=== PATIENT | female | born 2000 | race Caucasian/White ===

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

== ENCOUNTER 2021-03-27 22:26 | Emergency (ER) | payer MEDICAID, SELFPAY ==
[2021-03-27 22:27] VITALS: BP 116/74; PULSE 86; RESP 15; TEMP 36; O2SAT 97; BMI 33.2
--- NOTE | 2021-03-27 22:43 | EX.ED.VIS.UR ---
HPI HPI - URI History of Present Illness Chief Complaint: Sore Throat Informant: patient Onset/Context/Timing Onset: Weeks (3) Context: Gradual Onset Timing: Intermittent Quality: sore/odynophagia Location: throat Current Severity: Moderate Maximum Severity: Moderate Worsened by: Swallowing Associated Symptoms Associated Symptoms: Positive for Nonproductive cough Narrative Narrative: Patient brought in with her mother for 3 weeks of intermittent symptoms. Hurts to swallow, she feels like she has some phlegm in her throat sometimes and 1 week ago she coughed up something white and hard. She has been coughing. No fevers or chills. No myalgias, loss of taste or smell, headaches, diarrhea. No abdominal symptoms. She occasionally feels like it is hard to take a deep breath but she denies any carmencita dyspnea. Pain radiates to her right ear, she denies any changes in her hearing. States she has got some wisdom teeth coming in there, they have been painful and she has not had them addressed yet. Has not been vaccinated against Covid. No known Covid contacts that she knows of. ROS ROS ED Constitutional Constitutional ED: Denies chills or fever(s) Eyes Eyes: Denies change in vision or diplopia ENT ENT ED: Reports as per HPI, dental pain, nasal congestion and sore throat; Denies rhinorrhea Cardiovascular Cardiovascular: Denies chest pain or palpitations Respiratory/Chest Respiratory/Chest: Reports cough; Denies dyspnea Gastrointestinal Gastrointestinal: Denies abdominal pain, diarrhea, nausea or vomiting Genitourinary Genitourinary ED: Denies dysuria or hematuria Musculoskeletal Musculoskeletal: Denies back pain or neck pain Integumentary Denies abscess or rash Neurologic Neurologic: Denies headache(s), paresthesias or weakness Psychiatric Psychiatric: Denies anxiety or suicidal thoughts PFSH PFS Medical History no medical history no medical history Home Medications oseltamivir 75 mg PO BID #9 cap 06/26/18 [Rx Last Taken Unknown] Allergy/AdvReac Type Severity Reaction Status Date / Time No Known Allergies Allergy Verified 03/27/21 22:29 Family History no significant family his Surgical History no surgical history Social History Smoking Status: Never smoker EXAM Physical Exam Const Vital Signs: 03/27/21 22:27 03/28/21 00:17 Temperature 96.8 F L Temperature Source Temporal Pulse Rate 86 Respiratory Rate 15 Respiratory Pattern Normal Blood Pressure 116/74 Blood Pressure Mean 88 Pulse Ox 97 Oxygen Delivery Method Room Air Positive well nourished and well developed General Appearance ED: well developed and NAD HEENT Reports TM's clear and moist mucous membranes HEENT Narrative: Unerupted third molars right maxillary mandibular nontender without signs of gingivitis or infection/abscess. No trismus. Mild erythema tonsillar pillars but no tonsillar abnormalities or edema or asymmetry. No exudates. normocephalic and atraumatic Tympanic Membrane ED: Yes TM's clear and TM's normal bilaterally Eyes PERRL and EOMs intact bilaterally Neck full ROM, No nuchal rigidity, no lymphadenopathy, supple and no meningeal signs Resp normal respiratory effort and clear to auscultation bilaterally Cardio regular rate, regular rhythm and no murmurs Rate: Negative for tachycardic GI non-tender and non-distended Auscultation: normoactive bowel sounds Palpation: soft Back/Spine no CVA tenderness General Back: other FROM Extremity normal to inspection General Extremety ED: Negative for edema, pulses abnormal or tenderness General Extremity: Negative for edema or pulses abnormal Neuro oriented x3, CN's II-XII intact bilaterally and no sensory deficits noted Sensorium / Orientation: awake and alert Motor Exam: strength 5/5 throughout Skin no rashes or lesions noted and no wounds MDM MDM MDM Narrative Medical decision making narrative: I obtain a rapid strep and a Covid rapid antigen test, they both returned negative but prior to reviewing the test results or reevaluating the patient/discussing plans, she and her mother eloped. Lab Data Attestation: I reviewed the patient's lab results. Discharge Plan Triage Chief Complaint: Sore Throat ED Provider: Truman Ariza Dx/Rx/DC Orders Clinical Impression: Viral URI with cough Prescriptions: No Action oseltamivir 75 MG capsule 75 mg PO BID Qty: 9 RF: 0 Primary Care Provider: Chan Villegas Referrals: Chan Villegas MD [Primary Care Provider] - Disposition Disposition: Elopement Discharge Date/Time: 03/28/21 00:21
== END 2021-03-28 00:21 | disposition left against medical advice (07) ==
LOC: ED 22:47
PROVIDERS: Emergency Provider Emergency Medicine; PCP Pediatrics
DX: J06.9 Acute upper respiratory infection, unspecified (principal)
CPT/HCPCS: 87426; 87880; 99282

== ENCOUNTER 2023-09-21 02:07 | Emergency (ER) | payer SELFPAY ==
[2023-09-21 02:07] VITALS: BP 97/61; PULSE 90; RESP 18; TEMP 36.1; O2SAT 100
[2023-09-21 02:08] VITALS: BP 97/61; PULSE 90; RESP 18; TEMP 36.1; O2SAT 100; BMI 28.3
--- NOTE | 2023-09-21 02:22 | CT_ITS ---
STUDY: CT ABDOMEN AND PELVIS WITH CONTRAST REASON FOR EXAM: Female, 23 years old. abd pain RADIATION DOSAGE (If Supplied By Facility): CTDIvol = ( 14.42 ) mGy, DLP = ( 611.35 ) mGycm TECHNIQUE: IV 100mL Isovue-370 was administered. Transaxial images were obtained from the dome of the diaphragm to the symphysis pubis in the portal venous phase. Multiplanar coronal and sagittal images were reformatted. Individualized Dose Optimization Techniques Were Used For This CT. COMPARISON: No relevant prior comparison study available FINDINGS: LOWER CHEST: Lung bases are clear. No cardiomegaly or pericardial effusion. LIVER: The liver is normal in size, shape, and attenuation. No focal mass. GALLBLADDER AND BILIARY TREE: The gallbladder is normally distended. No gallstones. No gallbladder wall thickening or edema. No pericholecystic fluid. No intra- or extrahepatic biliary ductal dilation. PANCREAS: No focal cystic or solid mass. SPLEEN: Normal size without focal cystic or solid mass. ADRENAL GLANDS: No nodules. KIDNEYS AND URETERS: Normal renal size and position. No hydronephrosis or nephrolithiasis. PERITONEUM: No ascites or free air. No other fluid collection. BOWEL: The stomach is unremarkable. Normal caliber small bowel. There is no obstruction. No colonic wall thickening or inflammation. No free air or free fluid. No evidence of acute appendicitis. LYMPH NODES: No enlarged mesenteric or retroperitoneal lymph nodes. VESSELS: Aorta is non-dilated. URINARY BLADDER: Unremarkable. REPRODUCTIVE ORGANS: No pelvic masses. ABDOMINAL WALL: No discrete abdominal or pelvic wall hernia. BONES: No lytic or blastic abnormality. CT/Abdomen/Pelvis W IV Cont ONLY IMPRESSION: No acute findings to explain the patient''s symptomatology. Unremarkable exam Electronically Signed: Silvino Keenan MD at 4:46 EDT Reading Location ID and State: [id number] / [place] Tel , Service support ,
[2023-09-21] MEDS: Ketorolac 30 MG/ML Syringe IV (02:36)
[2023-09-21] MEDS: 0.9% Normal Saline (1000mL) 1,000 ML 999 ML IV (02:36)
[2023-09-21] MEDS: Ondansetron 4 MG/2 ML Vial IV (02:36)
[2023-09-21 02:40] LABS: Absolute Lymphocyte Count 0.35 X10^3/uL (0.83-4.51); Absolute Neutrophil Count 7.1 X10^3/uL (2.0-7.7); Basophil# 0.02 X10^3/uL; Basophil% 0.2 % (0-1); Eosinophil# 0.04 X10^3/uL; Eosinophils% 0.5 % (0-5); Hematocrit 40.7 % (37-47); Hemoglobin 14.3 g/dL (12.0-15.0); Lymphocyte # 0.35 X10^3/ul (0.83-4.51); Lymphocyte % 4.3 % (19-41); Mean Corp Hgb Conc 35.1 g/dL (32-36); Mean Corpuscular Hgb 29.2 pg (27.0-32.0); Mean Corpuscular Volume 83.1 fL (81-99); Mean Platelet Vol. 10.3 fl (6.2-12.0); Monocyte# 0.65 X10^3/uL; NRBC Flagged by Analyzer 0 % (0-5); Neutrophil # 7.05 X10^3/uL (2.7-7.7); Neutrophil % 86.6 % (47-70); POSITIVE DIFFERENTIAL YES; Platelet Count 310 K/mm3 (150-450); RBC Distribution Width CV 12.4 % (11.6-14.6); RBC Distribution Width SD 37.6 fl (35.1-43.9); White Blood Count 8.1 K/mm3 (4.4-11.0)
[2023-09-21 02:41] LABS: Bacteria 0 SEEN /hpf (None Seen); Mucous, Urine 0 SEEN /hpf (<or=2+); Red Blood Cells-Urine 0 SEEN /hpf (0-5); Squamous Epithelial Cells - UA 0 SEEN /hpf (5-10); White Blood Cells 0 SEEN /hpf (0-5)
[2023-09-21 02:53] LABS: Glucose, Dipstick Normal (Normal); Ketone-Dipstick 15 mg/dl (Negative); Leukocyte Esterase-Dipstick Negative /ul (Negative); Nitrite-Dipstick Negative (Negative); Occult Blood-Urine 10 /ul (Negative); Protein-Dipstick Negative (Negative); Specific Gravity, Urine 1.015 (1.002-1.030); Urine Bilirubin Dipstick Negative (Negative); Urine Urobilinogen Normal (Normal)
[2023-09-21 02:57] LABS: Internal QC Validated? YES +Cl - CLEAR BKGD; Pregnancy, Urine Negative Negative; Record Kit Lot#,Urine Preg 718089
[2023-09-21 03:07] LABS: AST(SGOT) 10 U/L (15-37); Alanine Aminotransfer ALT/SGPT 22 U/L (13-56); Albumin, Serum 3.3 g/dL (3.2-5.0); Alkaline Phosphatase 52 U/L (45-117); Anion Gap 6 (5-15); BUN 14 mg/dL (7-18); BUN/Creat Ratio 15.3 RATIO (10-20); Bilirubin, Direct 0.24 mg/dL (0.00-0.30); Calcium,Total 8.6 mg/dL (8.5-10.1); Chloride 106 mmol/L (98-107); Creatinine, Serum 0.91 mg/dL (0.55-1.02); EST Glomerular Filtration Rate 82 mL/min (>60); Est Glom Filt Rate - Afr Amer 99 mL/min (>60); Estimated Creatinine Clearance 82.14 ml/min; Globulin 3.4 g/dL (2.2-4.2); Glucose 102 mg/dL (74-106); Lipase 20 U/L (13-75); Potassium 3.7 mmol/L (3.5-5.1); Protein, Total 6.7 g/dL (6.4-8.2); Sodium Level 137 mmol/L (136-145)
[2023-09-21 03:08] LABS: Color, Urine Yellow (Yellow); Urine Clarity Clear (Clear)
[2023-09-21 03:09] LABS: Lactic Acid 1.6 mmol/L (0.4-1.9)
[2023-09-21 04:07] VITALS: BP 114/72; PULSE 71; RESP 17; O2SAT 98
[2023-09-21] MEDS: Morphine 4 MG/ML Syringe IV (04:27)
--- NOTE | 2023-09-21 05:06 | EDS_ITS ---
HPI History of Present Illness Chief Complaint: Flank Pain Informant: patient and family Narrative Narrative: Patient is a 23-year-old female who reports a remote history of kidney stone. She states that earlier in the week she was out in the yard and came in contact with plants and now has poison madan. She states in the last day or so she developed pain more so in the right flank/lower abdomen region. She denies any trauma or excessive activity. She denies any dysuria or concern for or STD. She states she is having her second menstrual cycle for the month which is abnormal for her. She states that secondary to the pain which will not resolve on its own at home she was concern for potential kidney stone or infectious process and therefore comes in for evaluation [facility] Home Medications desonide 0.05 % topical cream 1 applic topical TID PRN skin irritation #60 grams 09/21/23 [Rx Last Taken Unknown] ketorolac 10 mg tablet 10 mg PO 4X/DAY PRN pain 5 days #20 tabs 09/21/23 [Rx Last Taken Unknown] oxycodone-acetaminophen 5 mg-325 mg tablet (Percocet) 1 tab PO Q6H PRN pain 3 days #12 tabs 09/21/23 [Rx Last Taken Unknown] Allergy/AdvReac Type Severity Reaction Status Date / Time No Known Allergies Allergy Verified 09/21/23 02:07 Social History Smoking Status: Never smoker ROS ROS ED Constitutional Constitutional ED: Denies chills or fever(s) ENT ENT ED: Denies sore throat Cardiovascular Cardiovascular: Denies chest pain Respiratory/Chest Respiratory/Chest: Denies cough or dyspnea Gastrointestinal Gastrointestinal: Reports abdominal pain, nausea and vomiting; Denies diarrhea Genitourinary Genitourinary ED: Reports hematuria; Denies dysuria or urinary frequency Musculoskeletal Musculoskeletal: Reports back pain; Denies myalgias Integumentary Reports rash Neurologic Neurologic: Denies headache(s) Hematologic/Lymphatic Hematologic/Lymphatic: Denies easy bleeding or easy bruising EXAM Physical Exam Const Vital Signs: 09/21/23 02:08 09/21/23 02:07 09/21/23 04:07 Temperature 97.0 F L 97.0 F L Temperature Source Temporal Temporal Pulse Rate 90 90 71 Respiratory Rate 18 18 17 Blood Pressure 97/61 97/61 114/72 Blood Pressure Mean 73 73 86 Pulse Ox 100 100 98 Oxygen Delivery Method Room Air Room Air Positive well nourished and well developed General Appearance ED: well developed; Negative for pallor HEENT Reports moist mucous membranes HEENT Narrative: No signs of infection noted in the posterior pharynx No airway edema or compromise Eyes PERRL and EOMs intact bilaterally General Eye ED: Negative for scleral icterus Neck supple Neck Narrative: No nuchal rigidity or meningeal signs Resp normal respiratory effort and clear to auscultation bilaterally Cardio regular rate and regular rhythm Rate: other Other Details: Heart is regular rate and rhythm without murmurs rubs or gallops GI non-distended and no masses GI Narrative: Abdomen is soft and nondistended with normal active bowel sounds. There is pain with palpation in the midepigastric and right lower quadrant region. However there is no voluntary guarding or rigidity or pulsatile mass. 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 Auscultation: normoactive bowel sounds Palpation: soft Back/Spine Back/Spine Narrative: Faint right CVA pain noted Extremity normal to inspection Extremity Narrative: No asymmetric edema no pitting edema negative Homans' sign bilaterally Neuro oriented x3, CN's II-XII intact bilaterally and no sensory deficits noted Sensorium / Orientation: alert Motor Exam: strength 5/5 throughout Psych mental status grossly normal Skin no wounds and skin turgor normal Skin Narrative: Patient has a erythematous blanchable vesicular rash along her right forearm right cheek and abdomen and back without involvement of the palms or soles most consistent with contact dermatitis General Skin Exam: Negative for jaundice or pallor MDM MDM MDM Narrative Medical decision making narrative: Patient arrived to the ER with stable vitals. She denies any recent trauma or excessive activity but had pain greatest in the right lower quadrant. Differential diagnosis is for acute appendicitis versus kidney stone versus ovarian cyst/ovarian pathology versus UTI versus pelvic inflammatory disease versus pyelonephritis. Basic blood work was obtained which revealed no clinically significant findings and patient is urine showed trace amount of blood but otherwise no signs of infection. CT scan revealed no acute abdominal pathology such as kidney stone signs of appendicitis intestinal abscess or ovarian cyst. I discussed with patient potential of performing a ultrasound study in a few hours based on the right lower quadrant pain with negative labs and CT scan. However if the patient did have a cyst it should have been noted on CT scan and has no cyst was found concern that there is a spontaneous torsion is low. Patient does states she is feeling better after receiving her medication and therefore does not want further testing performed. Therefore she will be discharged with symptomatic care and can follow-up with her family doctor on an outpatient basis for repeat evaluation History & Record Review Discussion w/independent historian: Patient and Family Lab Data Attestation: I reviewed the patient's lab results. Labs: Laboratory Results - last 24 hr 09/21/23 09/21/23 02:26 02:32 WBC 8.1 RBC 4.90 Hgb 14.3 Hct 40.7 MCV 83.1 MCH 29.2 MCHC 35.1 RDW Std Deviation 37.6 RDW Coeff of Rosanna 12.4 Plt Count 310 MPV 10.3 Immature Gran % (Auto) 0.400 Neut % (Auto) 86.6 H Lymph % (Auto) 4.3 L Burleigh % (Auto) 8.0 Eos % (Auto) 0.5 Baso % (Auto) 0.2 Absolute Neuts (auto) 7.1 Absolute Lymphs (auto) 0.35 L Nucleated RBC % 0 Sodium 137 Potassium 3.7 Chloride 106 Carbon Dioxide 25.0 Anion Gap 6 BUN 14 Creatinine 0.91 Estim Creat Clear Calc 82.14 Est GFR (MDRD) Af Amer 99 Est GFR (MDRD) Non-Af 82 BUN/Creatinine Ratio 15.3 Glucose 102 Lactic Acid 1.6 Calcium 8.6 Total Bilirubin 0.80 Direct Bilirubin 0.24 AST 10 L ALT 22 Alkaline Phosphatase 52 Total Protein 6.7 Albumin 3.3 Globulin 3.4 Lipase 20 Urine Color Yellow Urine Clarity Clear Urine pH 5.0 Ur Specific [place] 1.015 Urine Protein Negative Urine Glucose (UA) Normal Urine Ketones 15 H Urine Occult Blood 10 H Urine Nitrite Negative Urine Bilirubin Negative Urine Urobilinogen Normal Ur Leukocyte Esterase Negative Urine RBC 0 SEEN Urine WBC 0 SEEN Ur Squamous Epith Cells 0 SEEN Urine Bacteria 0 SEEN Urine Mucus 0 SEEN Urine Test Negative Radiography Diagnostic Testing: Clinical Impression(s) from Imaging Studies Abdomen/Pelvis CT 09/21/23 02:22 IMPRESSION: No acute findings to explain the patient''s symptomatology. Unremarkable exam Electronically Signed: Silvino Keenan MD at 4:46 EDT , Discharge Plan Triage Chief Complaint: Flank Pain ED Provider: Anthony Chong Dx/Rx/DC Orders Clinical Impression: Nonspecific abdominal pain, DUB (dysfunctional uterine bleeding), Contact dermatitis Instructions: Abdominal Pain Prescriptions: New ketorolac 10 mg tablet 10 mg PO 4X/DAY PRN (Reason: pain) 5 Days Qty: 20 0RF oxycodone-acetaminophen [Percocet] 5-325 mg tablet 1 tab PO Q6H PRN (Reason: pain) 3 Days Qty: 12 0RF desonide 0.05 % cream 1 applic topical TID PRN (Reason: skin irritation) Qty: 60 0RF Stand Alone Forms: ED Work / School Excuse Primary Care Provider: Pillo Bahena Referrals: Pillo Bahena MD [Primary Care Provider] - Activity Restrictions/Additional Instructions: If you have any further concerns or worsening of symptoms please return to the ER for repeat evaluation. Otherwise follow-up with your family doctor and/or CABLE TELEVISION LINE TECHNICIAN to discuss further testing such as pelvic ultrasound to further assess for the cause of your symptoms Disposition Disposition: Home, Self Care Discharge Date/Time: 09/21/23 05:22
[2023-09-21] MEDS: MethylPREDNISolone 125 MG/2 ML Vial IV (05:17)
[2023-09-21 05:21] VITALS: BP 98/58; PULSE 72; RESP 16; TEMP 36.6; O2SAT 99
== END 2023-09-21 05:22 | disposition home or self-care (01) ==
PROVIDERS: Emergency Provider Emergency Medicine; PCP Family Medicine; Visit Provider Emergency Medicine
DX: N93.8 Other specified abnormal uterine and vaginal bleeding (principal); L25.9 Unspecified contact dermatitis, unspecified cause; R10.9 Unspecified abdominal pain; Z87.442 Personal history of urinary calculi; R31.9 Hematuria, unspecified
CPT/HCPCS: 74177; 80048; 80076; 81001; 81025; 83605; 83690; 85025; 96361; 96374; 96375; 99284; J7030; Q9967; A4216; J2405

== ENCOUNTER 2024-09-25 01:02 | Emergency (ER) | payer MEDICAID, SELFPAY ==
[2024-09-25 01:02] VITALS: BP 103/73; PULSE 68; RESP 16; TEMP 36.6; O2SAT 98; BMI 31.1
--- NOTE | 2024-09-25 01:33 | CT_ITS ---
PROCEDURE: ABDOMEN/PELVIS W IV CONT ONLY 09/25/2024 REASON FOR EXAM: ABD PAIN TECHNIQUE: Abdomen and pelvis CT with intravenous contrast. Coronal and Sagittal reconstruction series were provided. PATIENT PREPARATION: Per protocol ORAL CONTRAST TYPE: None. CONTRAST: 96 cc Isovue 370 IV One or more dose reduction techniques were used (e.g., Automated exposure control, adjustment of the mA and/or kV according to patient size, use of iterative reconstruction technique. RADIATION DOSE SUMMARY: CTDlvol: 15.88 mGy DLP: 807.89 mGycm COMPARISON: 09/21/2023 FINDINGS: The lung bases are clear. The liver, gallbladder, adrenal glands, pancreas and spleen appear within limits. Small nonobstructing right and left intrarenal stone again seen. Symmetric nephrograms without hydronephrosis or perinephric stranding. Abdominal aorta appears within limits. No adenopathy identified. No bowel dilation or free air. Normal caliber appendix without secondary signs. The left ovary, uterus and bladder appear within limits. Crenated, involuting 1.7 cm right ovarian corpus luteum cyst. Very small pelvic free fluid. The visualized osseous structures appear within limits. CT/Abdomen/Pelvis W IV Cont ONLY IMPRESSION: No evidence of acute intra-abdominal process. Crenated, involuting 1.7 cm right ovarian corpus luteum cyst. Very small pelvic free fluid. Reading Location: [id number]
[2024-09-25] MEDS: 0.9% Normal Saline (1000mL) 1,000 ML 999 ML IV (01:47)
[2024-09-25 01:52] VITALS: BP 100/62
[2024-09-25 01:52] LABS: Bacteria 0 SEEN /hpf (None Seen); Mucous, Urine 0 SEEN /hpf (<or=2+); Red Blood Cells-Urine 0 SEEN /hpf (0-5); Squamous Epithelial Cells - UA 0 SEEN /hpf (5-10); White Blood Cells 0 SEEN /hpf (0-5)
[2024-09-25 01:54] LABS: Absolute Lymphocyte Count 2.92 X10^3/uL (0.83-4.51); Absolute Neutrophil Count 4.9 X10^3/uL (2.0-7.7); Basophil# 0.04 X10^3/uL; Basophil% 0.4 % (0-1); Eosinophil# 0.24 X10^3/uL; Eosinophils% 2.7 % (0-5); Hematocrit 38.5 % (37-47); Hemoglobin 13.4 g/dL (12.0-15.0); Lymphocyte # 2.92 X10^3/ul (0.83-4.51); Lymphocyte % 32.7 % (19-41); Mean Corp Hgb Conc 34.8 g/dL (32-36); Mean Corpuscular Hgb 29.2 pg (27.0-32.0); Mean Corpuscular Volume 83.9 fL (81-99); Mean Platelet Vol. 10.2 fl (6.2-12.0); Monocyte# 0.75 X10^3/uL; Monocyte% 8.4 % (0-10); NRBC Flagged by Analyzer 0 % (0-5); Neutrophil # 4.94 X10^3/uL (2.7-7.7); Neutrophil % 55.5 % (47-70); Platelet Count 341 K/mm3 (150-450); RBC Distribution Width SD 36.3 fl (35.1-43.9); Red Blood Count 4.59 M/mm3 (4.2-5.4); White Blood Count 8.9 K/mm3 (4.4-11.0)
[2024-09-25 01:54] LABS: Color, Urine Yellow (Yellow); Glucose, Dipstick Normal (Normal); Ketone-Dipstick Negative (Negative); Leukocyte Esterase-Dipstick Negative /ul (Negative); Nitrite-Dipstick Negative (Negative); Occult Blood-Urine Negative /ul (Negative); Protein-Dipstick Negative (Negative); Urine Bilirubin Dipstick Negative (Negative); Urine Clarity Clear (Clear); Urine Urobilinogen Normal (Normal); Urine pH 6.5 (5.0 - 8.0)
[2024-09-25 02:02] LABS: Internal QC Validated? YES +Cl - CLEAR BKGD; Pregnancy, Urine Negative Negative
[2024-09-25 02:10] LABS: Lipase 43 U/L (13-75)
[2024-09-25 02:12] LABS: AST(SGOT) 19 U/L (<=31); Alanine Aminotransfer ALT/SGPT 28 U/L (<=34); Albumin, Serum 3.9 g/dL (3.5-5.0); Alkaline Phosphatase 68 U/L (35-104); Anion Gap 10 (5-15); BUN 11 mg/dL (4-19); BUN/Creat Ratio 13.9 RATIO (10-20); Carbon Dioxide 19.8 mmol/L (21.0-32.0); Chloride 107 mmol/L (98-108); EST Glomerular Filtration Rate 106 (>60); Estimated Creatinine Clearance 97.07 ml/min (50-250); Globulin 2.6 g/dL (2.2-4.2); Glucose 90 mg/dL (70-99); Potassium 4.2 mmol/L (3.3-5.1); Protein, Total 6.5 g/dL (5.9-8.4); Sodium Level 136 mmol/L (133-145); Total Bilirubin 0.26 mg/dL (0.00-1.30)
--- NOTE | 2024-09-25 02:55 | EDS_ITS ---
HPI History of Present Illness Chief Complaint: Abd Pain Informant: patient and spouse/S.O. Narrative Narrative: Patient is a 24-year-old female with history of anxiety and depression. She states she has had intermittent generalized abdominal discomfort for appro ximately 3 weeks. She states she saw her family doctor for this and it was felt that this could potentially be an atypical stomach virus. Patient states that despite this evaluation her symptoms have been persistent and this concerns her and therefore she comes in for evaluation. She does state that the pain seems to be more intense in the lower abdomen and feels it radiates towards her side/back [facility] Medical History (Updated 09/25/24 @ 23:[address] Anthony Chong, DO) Anxiety Depression Home Medications ?Medication ?Instructions ?Recorded ?Last Taken ?Type escitalopram oxalate 5 mg tablet 5 mg PO DAILY 5 Unknown History Allergy/AdvReac Type Severity Reaction Status Date / Time No Known Allergies Allergy Verified 09/25/24 03:01 Social History Smoking Status: Current every day smoker tobacco type: e-cigarettes ROS ROS ED Constitutional Constitutional ED: Denies chills or fever(s) ENT ENT ED: Denies sore throat Cardiovascular Cardiovascular: Denies chest pain Respiratory/Chest Respiratory/Chest: Denies cough or dyspnea Gastrointestinal Gastrointestinal: Reports abdominal pain and nausea; Denies diarrhea or vomiting Genitourinary Genitourinary ED: Denies dysuria or hematuria Musculoskeletal Musculoskeletal: Reports back pain Integumentary Denies rash Neurologic Neurologic: Denies headache(s) Psychiatric Psychiatric: Reports anxiety and depression Hematologic/Lymphatic Hematologic/Lymphatic: Denies easy bleeding or easy bruising EXAM Physical Exam Const Vital Signs: 09/25/24 01:02 09/25/24 01:52 09/25/24 02:59 Temperature 98 F 97.8 F Temperature Source Oral Pulse Rate 68 68 Respiratory Rate 16 14 Blood Pressure 103/73 100/62 112/66 Blood Pressure Mean 83 74 81 Pulse Ox 98 99 09/25/24 03:02 Temperature Temperature Source Pulse Rate 65 Respiratory Rate Blood Pressure Blood Pressure Mean Pulse Ox Positive well nourished and well developed General Appearance ED: well developed; Negative for pallor HEENT Reports moist mucous membranes HEENT Narrative: No tongue or lip swelling no oral lesions no airway edema or compromise No signs of infection noted in the posterior pharynx Eyes PERRL and EOMs intact bilaterally General Eye ED: Negative for pale conjunctiva or scleral icterus Neck supple Neck Narrative: No nuchal rigidity or meningeal signs Resp normal respiratory effort and clear to auscultation bilaterally Cardio regular rate and regular rhythm Rate: other Other Details: Heart is regular rate and rhythm without murmurs rubs or gallops Radial and carotid pulses are equal and symmetric GI non-distended and no masses GI Narrative: Abdomen is soft and nondistended with hypoactive bowel sounds. Patient has mild pain with palpation in the lower abdomen diffusely. No voluntary guarding or rigidity or pulsatile mass. Negative Charles sign. No pain over McBurney's point. Auscultation: hypoactive bowel sounds Palpation: soft Back/Spine no CVA tenderness Extremity normal to inspection Extremity Narrative: No asymmetric edema no pitting edema negative Homans' sign bilaterally Neuro oriented x3, CN's II-XII intact bilaterally and no sensory deficits noted Sensorium / Orientation: alert Motor Exam: strength 5/5 throughout Psych Mood & Affect: anxious Skin no rashes or lesions noted and skin turgor normal General Skin Exam: Negative for jaundice or pallor MDM MDM MDM Narrative Medical decision making narrative: Patient arrived to the ER with stable vitals and a soft nonsurgical abdomen. With her report of generalized abdominal discomfort radiating towards the back there is concern for appendicitis versus atypical biliary colic or acute cholecystitis or pancreatitis. Patient could also have potential UTI or pyelonephritis or complication. Therefore elected to perform basic laboratory studies with a CT scan. Patient's liver enzymes are normal going against a biliary issue and her lipase is normal going against pancreatitis. Urine shows no sign of infection either going against UTI or pyelonephritis and test is negative going against a complication. CT scan showed an involuting right ovarian cyst. As the patient reports that the pain was more intense in the right side her symptoms over the last 2 weeks could be related to this disease process. However it is 1.7 cm in size which is low risk for torsion I do not feel the need for emergent ultrasound. After receiving medication in the ER patient's had improvement of symptoms and her abdomen remains soft and nonsurgical. Therefore with overall negative workup and improvement of symptoms she is otherwise safe for discharge and can follow-up as an outpatient with her doctor or [facility] for further evaluation History & Record Review Discussion w/independent historian: Patient and Significant other Lab Data Attestation: I reviewed the patient's lab results. Labs: Laboratory Results - last 24 hr 09/25/24 09/25/24 01:47 01:48 WBC 8.9 RBC 4.59 Hgb 13.4 Hct 38.5 MCV 83.9 MCH 29.2 MCHC 34.8 RDW Std Deviation 36.3 RDW Coeff of Rosanna 12.0 Plt Count 341 MPV 10.2 Immature Gran % (Auto) 0.300 Neut % (Auto) 55.5 Lymph % (Auto) 32.7 [place] % (Auto) 8.4 Eos % (Auto) 2.7 Baso % (Auto) 0.4 Absolute Neuts (auto) 4.9 Absolute Lymphs (auto) 2.92 Nucleated RBC % 0 Sodium 136 Potassium 4.2 Chloride 107 Carbon Dioxide 19.8 L Anion Gap 10 BUN 11 Creatinine 0.80 Estim Creat Clear Calc 97.07 Est GFR (MDRD) Non-Af 106 BUN/Creatinine Ratio 13.9 Glucose 90 Calcium 9.0 Total Bilirubin 0.26 Direct Bilirubin 0.10 AST 19 ALT 28 Alkaline Phosphatase 68 Total Protein 6.5 Albumin 3.9 Globulin 2.6 Lipase 43 Urine Color Yellow Urine Clarity Clear Urine pH 6.5 Ur Specific [place] 1.010 Urine Protein Negative Urine Glucose (UA) Normal Urine Ketones Negative Urine Occult Blood Negative Urine Nitrite Negative Urine Bilirubin Negative Urine Urobilinogen Normal Ur Leukocyte Esterase Negative Urine RBC 0 SEEN Urine WBC 0 SEEN Ur Squamous Epith Cells 0 SEEN Urine Bacteria 0 SEEN Urine Mucus 0 SEEN Urine Test Negative Radiography Diagnostic Testing: Clinical Impression(s) from Imaging Studies Abdomen/Pelvis CT 09/25/24 01:33 IMPRESSION: No evidence of acute intra-abdominal process. Crenated, involuting 1.7 cm right ovarian corpus luteum cyst. Very small pelvic free fluid. Reading Location: [facility] Discharge Plan Triage Chief Complaint: Abd Pain ED Provider: Anthony Chong Dx/Rx/DC Orders Clinical Impression: Nonspecific abdominal pain, Cyst of right ovary, Anxiety and depression Instructions: Abdominal Pain, ED Ovarian Cyst Prescriptions: No Action escitalopram oxalate 5 mg tablet 5 mg PO DAILY Stand Alone Forms: ED Work / School Excuse Primary Care Provider: Pillo Bahena Referrals: Pillo Bahena MD [Primary Care Provider] - Activity Restrictions/Additional Instructions: Your workup today showed no signs of intestinal infection or clinically significant lab abnormality. Please follow-up with your family doctor for repeat evaluation and if symptoms persist despite your negative workup in the ER you may need referral to a mechanical test engineer for further testing of your recu rrent abdominal pain. Return to the ER should you have any further concerns Print Language: Surinamese Disposition Disposition: Home, Self Care Discharge Date/Time: 09/25/24 03:47
[2024-09-25 02:59] VITALS: BP 112/66; PULSE 68; RESP 14; TEMP 36.6; O2SAT 99
[2024-09-25 03:02] VITALS: PULSE 65
== END 2024-09-25 03:47 | disposition home or self-care (01) ==
PROVIDERS: Emergency Provider Emergency Medicine; PCP Family Medicine; Visit Provider Emergency Medicine
DX: R10.9 Unspecified abdominal pain (principal); F41.9 Anxiety disorder, unspecified; F32.A Depression, unspecified; M54.9 Dorsalgia, unspecified; N83.11 Corpus luteum cyst of right ovary; Z79.899 Other long term (current) drug therapy; F17.290 Nicotine dependence, other tobacco product, uncomplicated
CPT/HCPCS: 74177; 80048; 80076; 81001; 81025; 83690; 85025; 96360; 96361; 99283; Q9967; A4216

== ENCOUNTER 2024-09-26 07:23 | Emergency (ER) | payer MEDICAID, SELFPAY ==
[2024-09-26 07:24] VITALS: BP 102/62; PULSE 81; RESP 16; TEMP 36.2; O2SAT 99; BMI 27.6
--- NOTE | 2024-09-26 07:41 | RAD_ITS ---
PROCEDURE: CHEST 1 VIEW (PORTABLE) 09/26/2024 REASON FOR EXAM: CHEST PAIN TECHNIQUE: Frontal view of the chest. COMPARISON: None FINDINGS: Heart size and mediastinal configuration are within normal limits. There is no focal infiltrate or consolidation. There is no pneumothorax or effusion. There is no acute bony abnormality. There is no visible atherosclerosis. RAD/Chest 1 View (Portable) IMPRESSION: No acute process is identified in the chest. Reading Location: [facility]
--- NOTE | 2024-09-26 07:42 | EDS_ITS ---
HPI History of Present Illness Chief Complaint: Chest Pain Narrative Narrative: 24-year-old female past medical history of recent diagnosis of right ovarian cyst presents with chest pain that began this morning at around 630, approximately an hour ago. It woke her from sleep. She describes it as sharp and stabbing in the middle of her chest. She states she was nauseated with it and short of breath as well. She was sweaty. She does vape. She denies any exacerbating or alleviating factors but did state that it is improving. No leg swelling. She has had a recent cough with a cold. She did start Lexapro few months ago. Unsure of significant family history for early coronary artery disease. [facility] Medical History Anxiety Depression Home Medications ?Medication ?Instructions ?Recorded ?Last Taken ?Type escitalopram oxalate 5 mg tablet 5 mg PO DAILY 5 Unknown History Allergy/AdvReac Type Severity Reaction Status Date / Time No Known Allergies Allergy Verified 09/25/24 03:01 Social History Smoking Status: Current every day smoker tobacco type: e-cigarettes ROS ROS ED ROS Narrative Constitutional: No fever, no chills. Positive diaphoresis. Cardiovascular: Positive sharp, standing chest pain. No palpitations. No pedal edema. Respiratory: No cough, no shortness of breath. Abdominal: No abdominal pain. Positive nausea. No vomiting. Musculoskeletal: No myalgias. No arthralgias. Neurologic: No headaches. No dizziness. Positive lightheadedness. Skin: No rash. No change in color. Psychiatric: No depression. No anxiety. EXAM Physical Exam Narrative Exam Narrative: Afebrile. Vital signs noted. Nontoxic-appearing. HEENT: Normocephalic. Atraumatic. PERRL, EOMI. Neck soft and supple. No point tenderness or step off. Cardiovascular: Regular rate and rhythm. No murmurs, rubs, or gallops appreciated. Respiratory: No tachypnea. Lungs clear to auscultation bilaterally. Gastrointestinal: Abdomen soft, nontender, with normoactive bowel sounds. No rebound or guarding. Neurological: Awake. Alert. Nonfocal, nonlateralizing. Skin: No rash. Normal color. No pallor. Musculoskeletal: No pedal edema. Full range of motion extremities. Const Vital Signs: 09/26/24 07:24 09/26/24 07:36 09/26/24 07:41 Temperature 97.1 F L Temperature Source Temporal Pulse Rate 81 Respiratory Rate 16 Respiratory Effort Short of Breath Blood Pressure 102/62 Blood Pressure Mean 75 Pulse Ox 99 Oxygen Delivery Method Room Air Room Air 09/26/24 09:24 Temperature Temperature Source Pulse Rate 63 Respiratory Rate Respiratory Effort Blood Pressure 88/57 L Blood Pressure Mean 67 Pulse Ox Oxygen Delivery Method MDM MDM MDM Narrative Medical decision making narrative: The differential diagnosis includes but not limited to coronary artery disease/ACS versus pulmonary embolism versus pneumonia versus pneumothorax. History and physical does not support the latter 2 diagnoses. Comprehensive workup was pursued. EKG was obtained and interpreted by myself independently as normal sinus rhythm at 67 bpm without ectopy or acute ST changes. No STEMI. I reviewed her laboratory work and she has normal white count of 6.0 with hemoglobin normal at 13.2, platelet count normal at 316. D-dimer is negative at less than 0.27 so I have low suspicion for pulmonary embolism. Additionally, she is PERC negative. BMP is grossly unremarkable. Initial high-sensitivity troponin less than 6 with repeat at 2 hours being less than 6 so I feel she has been ruled out for ACS with biomarkers. Chest x-ray in 1 view interpreted by myself independently shows no acute process. No pneumonia, no pneumothorax. I reviewed the radiology report which confirms my independent interpretation. Upon repeat examination she is resting comfortably on the cot. At this point in time, I feel she can be discharged to follow-up with her primary care provider. Return instructions reviewed. Disposition is discharged in stable condition. History & Record Review Discussion w/independent historian: Patient Additional record(s) reviewed:: Prior ED visit Lab Data Attestation: I reviewed the patient's lab results. Labs: Laboratory Results - last 24 hr 09/26/24 09/26/24 07:55 09:55 WBC 6.0 RBC 4.48 Hgb 13.2 Hct 37.0 MCV 82.6 MCH 29.5 MCHC 35.7 RDW Std Deviation 36.6 RDW Coeff of Rosanna 12.0 Plt Count 316 MPV 10.3 Immature Gran % (Auto) 0.300 Neut % (Auto) 64.4 Lymph % (Auto) 25.4 [place] % (Auto) 7.3 Eos % (Auto) 2.3 Baso % (Auto) 0.3 Absolute Neuts (auto) 3.9 Absolute Lymphs (auto) 1.52 Nucleated RBC % 0 D-Dimer Quant (PE/DVT) < 0.27 L Sodium 135 Potassium 4.2 Chloride 106 Carbon Dioxide 20.0 L Anion Gap 9 BUN 9 Creatinine 0.76 Estim Creat Clear Calc 95.98 Est GFR (MDRD) Non-Af 112 BUN/Creatinine Ratio 12.4 Glucose 85 Calcium 8.8 Troponin T High Sens < 6 Troponin T Hi Sens 2 Hr < 6 Radiography Diagnostic Testing: Clinical Impression(s) from Imaging Studies Chest X-Ray 09/26/24 07:41 IMPRESSION: No acute process is identified in the chest. [facility] Dis[facility] Triage Chief Complaint: Chest Pain ED Provider: David Mendes Dx/Rx/DC Orders Clinical Impression: Chest pain, Anxiety and depression Instructions: ED Chest Pain, Noncardiac, ED Chest Pain, Uncertain Cause Prescriptions: No Action escitalopram oxalate 5 mg tablet 5 mg PO DAILY Primary Care Provider: Pillo Bahena Referrals: Pillo Bahena MD [Primary Care Provider] - Activity Restrictions/Additional Instructions: Follow-up with your primary care provider soon as possible. Return with new or worsening symptoms. Print Language: Tristanian Disposition Disposition: Home, Self Care
--- NOTE | 2024-09-26 07:45 | EKG12_ITS ---
Test Reason : CP Blood Pressure : */* mmHG Vent. Rate : 67 BPM Atrial Rate : 67 BPM P-R Int : 184 ms QRS Dur : 78 ms QT Int : 364 ms P-R-T Axes : 23 51 49 degrees QTcB Int : 384 ms Normal sinus rhythm Normal ECG Confirmed by MIKALA HAGEN, JAY ([id number]), mapping editor JARETT COLLAZO ([id number]) on 09/26/2024 1:30:43 PM Referred By: Confirmed By: JAY BACH MD
[2024-09-26 08:06] LABS: Absolute Lymphocyte Count 1.52 X10^3/uL (0.83-4.51); Absolute Neutrophil Count 3.9 X10^3/uL (2.0-7.7); Basophil# 0.02 X10^3/uL; Basophil% 0.3 % (0-1); Eosinophil# 0.14 X10^3/uL; Eosinophils% 2.3 % (0-5); Hemoglobin 13.2 g/dL (12.0-15.0); Lymphocyte # 1.52 X10^3/ul (0.83-4.51); Lymphocyte % 25.4 % (19-41); Mean Corp Hgb Conc 35.7 g/dL (32-36); Mean Corpuscular Hgb 29.5 pg (27.0-32.0); Mean Corpuscular Volume 82.6 fL (81-99); Mean Platelet Vol. 10.3 fl (6.2-12.0); Monocyte# 0.44 X10^3/uL; Monocyte% 7.3 % (0-10); NRBC Flagged by Analyzer 0 % (0-5); Neutrophil # 3.85 X10^3/uL (2.7-7.7); Neutrophil % 64.4 % (47-70); Platelet Count 316 K/mm3 (150-450); RBC Distribution Width SD 36.6 fl (35.1-43.9); Red Blood Count 4.48 M/mm3 (4.2-5.4)
[2024-09-26 08:44] LABS: Anion Gap 9 (5-15); BUN 9 mg/dL (4-19); BUN/Creat Ratio 12.4 RATIO (10-20); Calcium,Total 8.8 mg/dL (7.6-11.0); Chloride 106 mmol/L (98-108); Creatinine, Serum 0.76 mg/dL (0.70-1.20); EST Glomerular Filtration Rate 112 (>60); Estimated Creatinine Clearance 95.98 ml/min (50-250); Glucose 85 mg/dL (70-99); Potassium 4.2 mmol/L (3.3-5.1); Sodium Level 135 mmol/L (133-145); Troponin T High Sensitivity < 6 ng/L (<=14)
[2024-09-26 09:08] LABS: D-Dimer Quantitative (DVT/PE) < 0.27 FEU/ug/m (0.27-0.49)
[2024-09-26 09:24] VITALS: BP 88/57; PULSE 63
[2024-09-26 10:36] LABS: Troponin T High Sens 2 HR < 6 ng/L (<=14)
[2024-09-26 10:45] VITALS: BP 95/55; PULSE 70; RESP 13; TEMP 36.8; O2SAT 98
== END 2024-09-26 11:09 | disposition home or self-care (01) ==
PROVIDERS: Emergency Provider Emergency Medicine; PCP Family Medicine; Visit Provider Emergency Medicine
DX: R07.9 Chest pain, unspecified (principal); R06.02 Shortness of breath; Z79.899 Other long term (current) drug therapy; F41.9 Anxiety disorder, unspecified; F32.A Depression, unspecified; F17.290 Nicotine dependence, other tobacco product, uncomplicated
CPT/HCPCS: 71045; 80048; 84484; 85025; 85379; 93005; 99283; A4216